=== PATIENT | male | born 1940 | race Caucasian/White ===

== ENCOUNTER 2019-03-14 17:11 | Inpatient (IN) | payer OTHER ==
[~2019-03-14] VITALS: Ht 182.9 cm; Wt 68.0 kg
--- NOTE | 2019-03-14 17:17 | NUR ---
SE RECIBE PACIENTE QUE REFERE SANGRADO EN EXCRETA HACE [address] POM[address]. PACIENTE REFIERE TENER HEMOGLOBINA EN 8.6.
[2019-03-17] MEDS ORDERED: PANTOPRAZOLE SO40 MG PO (10:37)
[2019-03-17] MEDS ORDERED: CARAFATE1 GM PO (10:38)
[2019-03-17] MEDS ORDERED: ZANTAC150 MG PO (10:38)
== END 2019-03-17 11:41 | disposition home or self-care (01) | DRG 378 ==
LOC: ER 17:11 → SURH 17:50 → SEC-K 17:50 → SURH 18:20
PROVIDERS: ADMIT Colon & Rectal Surgery
PROC: 30233N1 Transfusion of Nonautologous Red Blood Cells into Peripheral Vein, Percutaneous Approach (ICD-10-PCS; 2019-03-14)
PROC: 0DBA8ZX Excision of Jejunum, Via Natural or Artificial Opening Endoscopic, Diagnostic (ICD-10-PCS; principal; 2019-03-15)
PROC: 0DB68ZX Excision of Stomach, Via Natural or Artificial Opening Endoscopic, Diagnostic (ICD-10-PCS; 2019-03-15)
DX: K29.61 Other gastritis with bleeding (principal); R45.851 Suicidal ideations; D62 Acute posthemorrhagic anemia; K27.4 Chronic or unspecified peptic ulcer, site unspecified, with hemorrhage; E78.00 Pure hypercholesterolemia, unspecified; I11.9 Hypertensive heart disease without heart failure; F43.21 Adjustment disorder with depressed mood

== ENCOUNTER 2024-03-09 11:00 | Emergency (ER) | payer OTHER ==
[~2024-03-09] VITALS: Ht 175.3 cm; Wt 77.1 kg
[~2024-03-09 11:00] MED LIST: CARAFATE1 GM PO; PANTOPRAZOLE SO40 MG PO; ZANTAC150 MG PO
[2024-03-09] MEDS ORDERED: RAMIPRIL5 MG (11:21)
[2024-03-09] MEDS ORDERED: GLUMETZA500 MG (11:21)
[2024-03-09] MEDS ORDERED: DRIZALMA SPRINK20 MG (11:23)
[2024-03-09] MEDS ORDERED: TOPROL XL25 M1 (11:23)
[2024-03-09] MEDS ORDERED: LIPITOR20 MG (11:23)
[2024-03-09] MEDS ORDERED: ZOLOFT50 MG (11:24)
[2024-03-09] MEDS ORDERED: MYRBETRIQ25 MG (11:24)
[2024-03-09] MEDS ORDERED: 0.9 % SODIUM CHLORIDE 1,000 ML IV ONE (12:45)
[2024-03-09 13:23] LABS: HEMATOCRIT 37.7 % (39.0-48.0); HEMOGLOBIN 12.9 g/dL (13-16.00); MEAN CELL VOLUME 91.5 fL (80.0-100.00); MEAN CORPUSCULAR HEMOGLOBIN 31.2 pg (27.00-32.0); MEAN CORPUSCULAR HGB CONC 34.1 g/dl (32.0-36.0); PLATELET COUNT 232 K/uL (150-450); RED BLOOD COUNT 4.12 M/uL (4.00-6.00); RED CELL DISTRIBUTION WIDTH 14.5 % (11.5-14.5)
[2024-03-09 13:30] LABS: INR 1.15; PARTIAL THROMBOPLASTIN TIME 28.2 SECONDS (22.0-34.0); PROTHROMBIN TIME 12.4 SECONDS (9.0-11.5)
[2024-03-09 13:34] LABS: ALBUMIN 3.6 gm/dL (3.4-5.0); BILIRUBIN TOTAL 0.8 mg/dL (0.3-1.2); CALCIUM 9.7 mg/dL (8.5-10.1); CREATININE SERUM 0.91 mg/dL (0.70-1.30); GFR 79.96; GLOBULINA 3.7 G/DL (2.4-3.5); POTASSIUM 5.55 mEq/L (3.5-5.1); TOTAL PROTEIN 7.3 gm/dL (6.4-8.2)
[2024-03-09 13:35] LABS: URINE APPEARANCE Cloudy; URINE BILIRRUBIN Negative (NEGATIVE); URINE BLOOD Large; URINE COLOR Dark Yellow; URINE GLUCOSE Negative (NEGATIVE); URINE KETONE 15 (NEGATIVE); URINE LEUKOCYTE Small; URINE NITRATE Negative; URINE PROTEIN 30 (NEGATIVE); URINE UROBILINOGEN 0.2 E.U./dl
[2024-03-09 13:39] LABS: URINE BACTERIA 79.3 uL (0.0-1933); URINE EPITHELIAL CELLS 20.7 uL (0.0-38.8); URINE RBC 1082.4 uL (0.0-20.8); URINE WBC 90.5 uL (0.0-23.2)
[2024-03-09 14:26] LABS: URINE CRYSTALS NEGATIVE /HPF; URINE YEAST NEGATIVE /hpf
== END 2024-03-09 18:15 | disposition home or self-care (01) ==
LOC: ER 11:02
PROVIDERS: General Practice
DX: R31.9 Hematuria, unspecified (principal); I10 Essential (primary) hypertension; E11.9 Type 2 diabetes mellitus without complications; Z79.84 Long term (current) use of oral hypoglycemic drugs
CPT/HCPCS: 36415; 74177; 96365; 96366; 99284; J7030; Q9965